=== PATIENT | female | born 1955 | race Hispanic/Latino ===

== ENCOUNTER 2017-05-19 06:07 | Day surgery (SDC) | payer OTHER, MEDICARE ==
[~2017-05-19] VITALS: Ht 157.5 cm; Wt 75.4 kg
[~2017-05-19 06:07] MED LIST: FAMO-136 PO; HYDR25TA PO; PREG150C PO; SIMV20TA6 PO; VALS160T28 PO; VENL75TA63 PO
[2017-05-19] MEDS ORDERED: SODIUM CHLORIDE 0.9% 1000ML 1,000 ML IV ONE (06:09)
[2017-05-19 06:50] VITALS: BP 133/72
[2017-05-19] MEDS ORDERED: FENTANYL CITRATE PF 50 MCG/1 ML 2ML VIAL ONE (07:30)
[2017-05-19] MEDS ORDERED: PROPOFOL 10 MG/ML 20ML VIAL IV ONE (07:30)
[2017-05-19] MEDS ORDERED: GLYCOPYRROLATE 0.2 MG/ML 5 ML VIAL ONE (07:31)
[2017-05-19] MEDS ORDERED: LIDOCAINE HCL 2% 20ML ONE ×2 (07:31)
[2017-05-19] MEDS ORDERED: PHENYLEPHRINE HCL 10 MG/ML 1ML VIAL IV ONE (07:54)
[2017-05-19 08:04] VITALS: BP 94/54
== END 2017-05-19 08:35 | disposition home or self-care (01) ==
LOC: DAH 06:07 → ENDO 06:07
PROVIDERS: ATTEND Internal Medicine Gastroenterology
DX: Z12.11 Encounter for screening for malignant neoplasm of colon (principal); K57.30 Diverticulosis of large intestine without perforation or abscess without bleeding; I10 Essential (primary) hypertension; E78.5 Hyperlipidemia, unspecified; F32.9 Major depressive disorder, single episode, unspecified; M79.7 Fibromyalgia; Z79.899 Other long term (current) drug therapy; Z68.32 Body mass index [BMI] 32.0-32.9, adult; Z80.0 Family history of malignant neoplasm of digestive organs; Z90.710 Acquired absence of both cervix and uterus; F17.210 Nicotine dependence, cigarettes, uncomplicated
CPT/HCPCS: A4606; G0105; J2370; J2704; J3010; J3490 ×3; J7030

== ENCOUNTER → 2020-04-04 | Outpatient (CLI) | payer OTHER, MEDICARE ==
[~2020-04-04] MED LIST changes: +SIMV-43 PO; -SIMV20TA6 PO; -VALS160T28 PO; +VALS160T29 PO; +VENL-61 PO; -VENL75TA63 PO
== END | disposition home or self-care (01) ==
LOC: RAH 10:17
PROVIDERS: ATTEND Orthopaedic Surgery
DX: S76.211A Strain of adductor muscle, fascia and tendon of right thigh, initial encounter (principal); M16.11 Unilateral primary osteoarthritis, right hip; X58.XXXA Exposure to other specified factors, initial encounter; Y93.89 Activity, other specified; Y92.89 Other specified places as the place of occurrence of the external cause; Y99.8 Other external cause status
CPT/HCPCS: 73721

== ENCOUNTER → 2020-08-23 | Outpatient (CLI) | payer OTHER, MEDICARE ==
[~2020-08-23] MED LIST changes: +REGADENOSON 0.4 MG/5 ML PF SYG IVP SCH; +VENL-191 PO; -VENL-61 PO
== END | disposition home or self-care (01) ==
LOC: RAH 09:38
PROVIDERS: ATTEND Internal Medicine
DX: R07.9 Chest pain, unspecified (principal)
CPT/HCPCS: 78452; 93017; 96374; A9500 ×2; J2785